=== PATIENT | female | born 1995 ===

== ENCOUNTER 2019-03-27 21:28 | Emergency (ER) | payer OTHER ==
[~2019-03-27] VITALS: Ht 149.9 cm; Wt 58.1 kg
[2019-03-27] MEDS ORDERED: CLEOCIN HCL300 MG PO (22:16)
[2019-03-27] MEDS ORDERED: KETO10TA2 PO (22:16)
== END 2019-03-27 22:36 | disposition home or self-care (01) ==
LOC: ER 21:28
DX: K04.7 Periapical abscess without sinus (principal)

== ENCOUNTER 2020-06-11 00:40 | Emergency (ER) | payer OTHER ==
[~2020-06-11] VITALS: Ht 152.4 cm; Wt 65.8 kg
[~2020-06-11 00:40] MED LIST: CLEOCIN HCL300 MG PO; KETO10TA2 PO
[2020-06-11] MEDS ORDERED: ZYRTEC10 M3 PO (03:00)
[2020-06-11] MEDS ORDERED: MUPIROCIN22 GM TOP (03:00)
[2020-06-11] MEDS ORDERED: CEFUROXIME500 MG PO (03:00)
== END 2020-06-11 03:56 | disposition home or self-care (01) ==
LOC: ER 00:40
DX: L73.8 Other specified follicular disorders (principal)